=== PATIENT | male | born 1955 ===

== ENCOUNTER 2024-07-19 06:00 | Day surgery (SDC) | payer OTHER ==
[~2024-07-19 06:00] MED LIST: ADULT LOW DOSE81 M1; BICALUTAMIDE50 MG PO; FOSAMAX70 MG PO; METOPROLOL SUC200 MG PO; MICARDIS40 MG; NIFEDIPINE20 MG PO; SIMVASTATIN5 MG PO; TRELSTAR3.75 M1 IM
[2024-07-19] MEDS ORDERED: POVIDONE-IODINE 118 ML BOTT TOP ONE (13:45)
[2024-07-19] MEDS ORDERED: DIBUCAINE 30 GM TUBE RECTAL ONE (13:45)
[2024-07-19] MEDS ORDERED: PIPERACILLIN/TAZOBACTAM SODIUM 3.375 GM VIAL IV ONE (13:45)
[2024-07-19] MEDS ORDERED: BUPIVACAINE HCL 30 ML VIAL IV ONE (13:45)
[2024-07-19] MEDS ORDERED: LIDOCAINE HCL 1% 20ML VIAL IJ ONE (13:45)
== END 2024-07-19 17:00 | disposition home or self-care (01) ==
LOC: CIR.AMB 06:00
PROVIDERS: ATTEND Colon & Rectal Surgery
DX: K60.1 Chronic anal fissure (principal); K62.4 Stenosis of anus and rectum; I10 Essential (primary) hypertension; J44.9 Chronic obstructive pulmonary disease, unspecified